=== PATIENT | female | born 1990 | race Caucasian/White ===

== ENCOUNTER 2023-04-28 08:25 | Emergency (ER) | payer OTHER, SELFPAY ==
[2023-04-28 08:36] VITALS: BP 161/106; PULSE 98; RESP 18; TEMP 36.9; O2SAT 97; BMI 36.6
--- NOTE | 2023-04-28 08:58 | ED.URI1 ---
HPI - URI/Sore Throat General Chief Complaint: Upper Respiratory Infection Stated Complaint: URTI Time Seen by Provider: 04/28/23 08:36 Source: patient History of Present Illness HPI Narrative: 4 days of nasal congestion, sore throat, ear fullness and cough. She is uncertain about fever. No vomiting or diarrhea. No relief with OTC meds. Home Covid test was negative. Related Data Previous Rx's Medication Instructions Recorded azithromycin 250 mg tablet See Rx Instructions PO .COMPLEX #6 04/28/23 tabs oydyijtqzfduasd-owtkynawdptgdto-OK 5 ml PO Q6H PRN cold symptoms #118 04/28/23 2 mg-30 mg-10 mg/5 mL oral syrup mL (Bromfed DM) Allergies Allergy/AdvReac Type Severity Reaction Status Date / Time No Known Drug Allergies Allergy Verified 04/28/23 08:43 Exam Narrative Exam Narrative: Nurses notes and vital signs reviewed and patient is not hypoxic. afebrile General: Well-appearing and in no apparent distress. Skin: Warm, dry, no pallor noted. No rash. Head: Normocephalic, atraumatic. Neck: Supple, non-tender. cervical lymphadenopathy Eye: Pupils are equal, round and EOMI. No scleral icterus. Ears, Nose, Mouth, and Throat: TM are dull and erythematous bilaterally, moderate nasal mucosal hypertrophy. Oral mucosa is moist, moderate posterior oropharynx erythema without exudate, uvula is mid-line Cardiovascular: borderline tachycardia. Respiratory: No accessory muscle use or respiratory distress. Lungs are clear to auscultation, no wheezing, rales or rhonchi Musculoskeletal: normal ROM GI: Abdomen is soft, non-distended. No tenderness to palpation. No rebound, guarding, or rigidity noted. Neurological: A&O x4. No cranial nerve dysfunction observed. No truncal ataxia. Moves all extremities. Sensation intact. Psychiatric: Cooperative and interactive. Normal mood and affect. Constitutional Vital Signs, click to edit/add: Last Vital Signs Temp 98.5 F 04/28/23 08:36 Pulse 98 H 04/28/23 08:36 Resp 18 04/28/23 08:36 BP 161/106 H 04/28/23 08:36 Pulse Ox 97 04/28/23 08:36 O2 Del Method Room Air 04/28/23 08:36 Course Vital Signs Vital signs: Vital Signs Temperature 98.5 F 04/28/23 08:36 Pulse Rate 98 H 04/28/23 08:36 Respiratory Rate 18 04/28/23 08:36 Blood Pressure 161/106 H 04/28/23 08:36 Pulse Oximetry 97 04/28/23 08:36 Oxygen Delivery Method Room Air 04/28/23 08:36 Temperature 98.5 F 04/28/23 08:36 Pulse Rate 98 H 04/28/23 08:36 Respiratory Rate 18 04/28/23 08:36 Blood Pressure 161/106 H 04/28/23 08:36 Pulse Oximetry 97 04/28/23 08:36 Oxygen Delivery Method Room Air 04/28/23 08:36 MDM - URI/Sore Throat MDM Narrative Medical decision making narrative: the patient is developing bilateral otitis media with increased fluid production despite ilty-pnl-njkcvvp medications. Home covid negative. She was discharged home with prescriptions for Bromfed-DM and azithromycin antibiotic. Primary care physician follow-up recommended otherwise emergency Department return if she worsens. Discharge Plan Discharge Chief Complaint: Upper Respiratory Infection Clinical Impression: Upper respiratory infection, Otitis media Patient Disposition: Home, Self-Care Time of Disposition Decision: 08:56 Prescriptions / Home Meds: New ndxhrtlevvmljuc-zvvwlvwai-ID [Bromfed DM] 2-30-10 mg/5 mL syrup 5 ml PO Q6H PRN (Reason: cold symptoms) Qty: 118 0RF azithromycin 250 mg tablet See Rx Instructions .ROUTE .COMPLEX Qty: 6 0RF Rx Instructions: For 250 mg dose pack: take 500 mg today (day 1), then 250 mg for 4 days (days 2-5) Instructions: Upper Respiratory Infection (ED), Ear Infection (ED) Stand Alone Forms: Portal Instructions Referrals: Physician,Non-Staff, MD [Primary Care Provider] - 1 week
== END 2023-04-28 09:06 | disposition home or self-care (01) ==
PROVIDERS: Emergency Provider Emergency Medicine
DX: J06.9 Acute upper respiratory infection, unspecified (principal); H66.90 Otitis media, unspecified, unspecified ear
CPT/HCPCS: 99283